=== PATIENT | female | born 1945 | race Caucasian/White ===

== ENCOUNTER 2018-03-26 05:30 | Day surgery (SDC) | payer MEDICARE, BC ==
[2018-03-26] MEDS ORDERED: ACETAZOLAMIDE 250 MG PO ONE (07:00)
[2018-03-26] MEDS: PROPARACAINE HCL 0.5% OPHTHALMIC SOL ONE ×3 (07:06→08:22)
[2018-03-26] MEDS: PHENYLEPHRINE HCL 10% OPHTHAL SOL ONE ×2 (07:06→07:18)
[2018-03-26] MEDS: KETOROLAC 0.5% OPTH 60 DROP SOL ONE ×2 (07:08→07:18)
[2018-03-26] MEDS: CYCLOPENTOLATE 1% SOL ONE ×2 (07:08→07:18)
[2018-03-26] MEDS ORDERED: FENTANYL 100MCG/2ML SOL ONE (08:02)
[2018-03-26] MEDS ORDERED: MIDAZOLAM 2 MG/2 ML SOL ONE (08:02)
[2018-03-26] MEDS ORDERED: IMPRIMIS ONE (08:16)
[2018-03-26] MEDS ORDERED: POVIDONE IODINE 5% SOL ONE (08:16)
[2018-03-26] MEDS ORDERED: BSS 500 ML 500 ML IR ONE (08:16)
[2018-03-26] MEDS ORDERED: LIDOCAINE HCL 1% MPF 30 SOL ONE (08:16)
[2018-03-26 08:48] VITALS: BP 117/54; PULSE 64; RESP 18; TEMP 97.4; O2SAT 95
== END 2018-03-26 09:04 | disposition home or self-care (01) | DRG 125 ==
LOC: SURG 05:30
PROVIDERS: ATTEND Ophthalmology
DX: H25.89 Other age-related cataract (principal)
CPT/HCPCS: J2250; J3010; A9270-GY; J2001

== ENCOUNTER 2018-11-28 17:38 | Emergency (ER) | payer MEDICARE, BC ==
[2018-11-28 17:39] VITALS: O2SAT 95
[2018-11-28] MEDS ORDERED: PREDNISONE 10 MG TAB PO SCH (18:45)
[2018-11-28] MEDS ORDERED: PREDNISONE 20 MG TAB ONE (18:53)
[2018-11-28 19:21] VITALS: RESP 18; TEMP 98.2
[2018-11-28 19:25] VITALS: BP 139/80; PULSE 71
== END 2018-11-28 19:07 | disposition home or self-care (01) | DRG 92 ==
LOC: ED 17:38
DX: R20.0 Anesthesia of skin (principal); G81.91 Hemiplegia, unspecified affecting right dominant side; G51.0 Bell's palsy; R40.2362 Coma scale, best motor response, obeys commands, at arrival to emergency department; R40.2142 Coma scale, eyes open, spontaneous, at arrival to emergency department; R40.2252 Coma scale, best verbal response, oriented, at arrival to emergency department
CPT/HCPCS: 70450; 82962; 99283; 99284; A9270-GY